=== PATIENT | female | born 1980 | race Caucasian/White ===

== ENCOUNTER 2019-06-16 01:02 | Day surgery (SDC) | payer OTHER, SELFPAY ==
[2019-06-10 14:10] VITALS: BMI 25.8
--- NOTE | 2019-06-16 07:18 | PM.HPGS ---
History of Present Illness History of Present Illness Consent: Risks, benefits, and alternatives have been discussed and questions answered. Patient agrees to proceed with procedure. Chief complaint: Blood In Stool Narrative: Ailyn Covarrubias is a 39 year old W female referred for colonoscopy secondary Hemoccult-positive stool. Patient has no overt evidence of blood loss. Patient has chronic intermittent diarrhea and constipation. 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 Patient is has a history of breast cancer underwent bilateral mastectomy and left axillary node dissection patient also previous hysterectomy. [facility] Past Medical History Medical History Gestational diabetes History of breast cancer 2006 Surgical History Surgical History (Updated 06/16/19 @ 07:20 by Tuan Whitley MD) H/O mastectomy Status post hysterectomy Family History Family History Mother Family history of lymphoma Family history of malignant neoplasm of breast in first degree relative Grandparent Diabetes mellitus Social History Social History Alcohol intake: current Meds Home Medications and Allergies Home Medications Medication Instructions Recorded Confirmed Type No Home Medications 06/10/19 06/10/19 History Allergies Allergy/AdvReac Type Severity Reaction Status Date / Time iodine Allergy Unknown Rash Verified 05/14/19 16:34 Contrast Media Allergy Unknown RASH/BREATHING Uncoded 05/07/18 06:39 DIFFICULTY Exam Const: Orientation/consciousness: patient oriented x3 Resp: Auscultation: clear to auscultation bilaterally Cardio: Rate: regular rate Rhythm: regular rhythm Heart sounds: no murmurs GI: GI Palp: Yes Soft to palpation, No Tenderness to palpation present (GI), Yes No hepatosplenomegaly present and No Palpable mass present Auscultation: normal bowel sounds Neuro: General: patient oriented x3 and no focal motor deficits Extrem: General: no pedal edema Assessment and Plan Additional Plan colonoscopy for evaluation of Hemoccult-positive stool
[2019-06-16 07:21] VITALS: BP 122/71; PULSE 99; RESP 16; TEMP 36.7; O2SAT 100
[2019-06-16] MEDS: LACTATED RINGERS 1,000 ML 150 ML IV CONT (07:23)
--- NOTE | 2019-06-16 07:31 | WPDANESEPPF ---
Anes - Initial Pre Proc Eval Procedure: Operation Date: 06/16/19 08:00 Proposed Procedures p Colonoscopy - Tuan Whitley MD Date/Time: 06/16/19 07:31 Surgeon: Tuan Whitley MD Pre Op Diagnosis: Blood In Stool Patient Data Age: 39 Gender: F Height: 5 ft 2 in Weight: 64.7 kg Last Vital Signs Temp 98.0 F 06/16/19 07:21 Pulse 99 06/16/19 07:21 Resp 16 06/16/19 07:21 BP 122/71 06/16/19 07:21 Pulse Ox 100 06/16/19 07:21 Allergies Allergy/AdvReac Type Severity Reaction Status Date / Time iodine Allergy Unknown Rash Verified 06/16/19 07:21 Contrast Media Allergy Unknown RASH/BREATHING Uncoded 05/07/18 06:39 DIFFICULTY Home Medications Medication Instructions Recorded Confirmed Type No Home Medications 06/10/19 06/10/19 History Patient hx anesthesia problems: none Family hx anesthesia problems: none PMFSH Past Medical History Medical History Gestational diabetes History of breast cancer 2006 Surgical History Surgical History (Updated 06/16/19 @ 07:20 by Tuan Whitley MD) H/O mastectomy Status post hysterectomy Family History Family History Mother Family history of lymphoma Family history of malignant neoplasm of breast in first degree relative Grandparent Diabetes mellitus Social History Social History Alcohol intake: current Anes - Eval Final PreProcedure Day of Procedure 06/16/19 07:31 Patient weight: normal Heart: regular rate and rhythm Lungs: clear to auscultation Airway: Mallampati scale class II Neurological: alert and oriented ASA classification: II Emergent: no Anesthetic plan: proceed Anesthesia type and monitoring: general GIVS and standard monitoring Informed Consent: The patient's anesthetic plan and its attendant risks and benefits were discussed with the patient/family/POA. Questions were solicited and answers provided to the satisfaction of the patient/family/POA.
[2019-06-16 08:20] VITALS: BP 99/60; PULSE 103; RESP 18; O2SAT 98
[2019-06-16 08:30] VITALS: BP 93/59; PULSE 98; RESP 14; O2SAT 100
[2019-06-16 08:40] VITALS: BP 93/59; PULSE 98; RESP 20; O2SAT 100
[2019-06-16 08:50] VITALS: BP 112/63; PULSE 86; RESP 20; O2SAT 100
== END 2019-06-16 08:57 | disposition home or self-care (01) ==
PROVIDERS: Referring Provider Obstetrics & Gynecology; Visit Provider Internal Medicine Gastroenterology
PROC: 0DJD8ZZ Inspection of Lower Intestinal Tract, Via Natural or Artificial Opening Endoscopic (ICD-10-PCS; CPT 45378; principal; 2019-06-16 08:00)
DX: R19.5 Other fecal abnormalities (principal); Z15.01 Genetic susceptibility to malignant neoplasm of breast; Z85.3 Personal history of malignant neoplasm of breast; Z90.13 Acquired absence of bilateral breasts and nipples
CPT/HCPCS: 45378; J2001; J2704; J7120